=== PATIENT | male | born 1945 | race Asian ===

== ENCOUNTER 2017-05-01 13:14 | Emergency (ER) | payer OTHER ==
[2017-05-01 13:36] VITALS: TEMP 98; BMI 29.4
--- NOTE | 2017-05-01 16:10 | PDOC ---
History of Present Illness <Haydee Miramontes - Last Filed: 05/01/17 17:11> - General History Source: Patient Exam Limitations: No Limitations - History of Present Illness Initial Comments: 05/01/17 16:10 CHIEF COMPLAINT: Dysuria HISTORY OF PRESENT ILLNESS: This is a 71-year-old male with a history of non- insulin-dependent diabetes, hypercholesterolemia, kidney stones, and cholecystectomy who presents complaining of 3 days of suprapubic pain, dysuria, and hematuria. He denies fevers/chills, flank pain, nausea/vomiting, or any other symptoms. PCP is Dr. Federico Buckner. REVIEW OF SYSTEMS: GENERAL/CONSTITUTIONAL: No fever or chills. No weakness. No weight change. HEAD, EYES, EARS, NOSE AND THROAT: No change in vision. No ear pain or discharge. No sore throat. CARDIOVASCULAR: No chest pain or palpitations. RESPIRATORY: No cough, wheezing, or shortness of breath. GASTROINTESTINAL: No nausea, vomiting, diarrhea or constipation. GENITOURINARY: See HPI. MUSCULOSKELETAL: No joint or muscle swelling or pain. No neck or back pain. SKIN: No rash or easy bruising. NEUROLOGIC: No headache, vertigo, loss of consciousness, or loss of sensation. PSYCHIATRIC: No depression or anxiety. ENDOCRINE: No increased thirst. No abnormal weight change. HEMATOLOGIC/LYMPHATIC: No anemia, easy bleeding, or history of blood clots. ALLERGIC/IMMUNOLOGIC: No hives or skin allergy. No latex allergy. PHYSICAL EXAM: GENERAL: The patient is awake, alert, and fully oriented, in no acute distress. HEAD: Normal with no signs of trauma. ENT: Pupils equal, round and reactive to light, extraocular movements intact, sclera anicteric, conjunctiva clear. Neck supple. LUNGS: Clear to auscultation bilaterally. Normal excursion. No respiratory distress or use of accessory muscles. CV: RRR, S1/S2, no MRG. Cap refill < 2 sec. ABDOMEN: Soft, non-distended, mild suprapubic tenderness. No CVA tenderness. EXTREMITIES: Normal range of motion, no edema. NEUROLOGICAL: Normal speech, normal gait. CN II-XII grossly intact. PSYCH: Normal mood, normal affect. SKIN: Warm, dry, normal turgor, no rashes or lesions noted. <Samina Leonardo - Last Filed: 05/01/17 18:17> <Daina Kelly - Last Filed: 05/01/17 20:11> - General Chief Complaint: Hematuria Stated Complaint: BLOOD IN URINE Time Seen by Provider: 05/01/17 15:16 Past History <Haydee Miramontes - Last Filed: 05/01/17 17:11> - Past Medical History Diabetes: Yes Hypercholesterolemia: Yes - Immunization History Immunization Up to Date: Yes - Psycho/Social/Smoking Cessation Hx Suicidal Ideation: No Smoking Status: No Smoking History: Never smoked Have you smoked in the past 12 months: No Number of Cigarettes Smoked Daily: 0 Information on smoking cessation initiated: No Hx Alcohol Use: No Drug/Substance Use Hx: No <Samina Leonardo - Last Filed: 05/01/17 18:17> <Daina Kelly - Last Filed: 05/01/17 20:11> - Past Medical History Allergies/Adverse Reactions: Allergies Allergy/AdvReac Type Severity Reaction Status Date / Time No Known Allergies Allergy Verified 05/01/17 13:32 Home Medications: Ambulatory Orders Aspirin [ASA -] 81 mg PO DAILY 05/01/17 Cetirizine HCl 10 mg PO HS 05/01/17 Glipizide [Glipizide ER] 2.5 mg PO DAILY 05/01/17 Linagliptin [Tradjenta] 5 mg PO DAILY 05/01/17 Metformin HCl [Metformin HCl ER] 1,000 mg PO BID 05/01/17 Omeprazole 40 mg PO DAILY 05/01/17 Simvastatin 40 mg PO HS 05/01/17 *Physical Exam - Vital Signs Last Vital Signs Temp Pulse Resp BP Pulse Ox 98.0 F 90 17 142/72 100 05/01/17 13:32 05/01/17 13:32 05/01/17 13:32 05/01/17 13:32 05/01/17 13:32 <Haydee Miramontes - Last Filed: 05/01/17 17:11> - Vital Signs Last Vital Signs Temp Pulse Resp BP Pulse Ox 98.0 F 90 17 142/72 100 05/01/17 13:32 05/01/17 13:32 05/01/17 13:32 05/01/17 13:32 05/01/17 13:32 <Samina Leonardo - Last Filed: 05/01/17 18:17> - Vital Signs Last Vital Signs Temp Pulse Resp BP Pulse Ox 98.0 F 90 17 142/72 100 05/01/17 13:32 05/01/17 13:32 05/01/17 13:32 05/01/17 13:32 05/01/17 13:32 <Daina Kelly - Last Filed: 05/01/17 20:11> Procedures - Bedside Ultrasound Other: Renal ultrasound : indication hematuria. see [facility] for report <JoneHaydee - Last Filed: 05/01/17 17:11> ED Treatment Course - ADDITIONAL ORDERS Additional order review: Laboratory Results 05/01/17 15:47 Urine Color Ltyellow Urine Appearance Clear Urine pH 5.0 Urine Protein Negative Urine Glucose (UA) 3+ H Urine Ketones Negative Urine Blood Negative Urine Nitrite Negative Urine Bilirubin Negative Urine Urobilinogen Negative Ur Leukocyte Esterase Negative <JoneHaydee - Last Filed: 05/01/17 17:11> - LABORATORY CBC & Chemistry Diagram: 05/01/17 17:09 05/01/17 17:09 <Kori Leonardoa - Last Filed: 05/01/17 18:17> - LABORATORY CBC & Chemistry Diagram: 05/01/17 17:09 05/01/17 17:09 - ADDITIONAL ORDERS Additional order review: Laboratory Results 05/01/17 05/01/17 17:09 15:47 Sodium 139 Potassium 4.8 D Chloride 106 Carbon Dioxide 28 Anion Gap 5 L BUN 22 H Creatinine 1.0 Creat Clearance w eGFR > 60 Random Glucose 160 H D Calcium 9.6 Total Bilirubin 0.6 D AST 25 D ALT 23 Alkaline Phosphatase 52 D Total Protein 7.4 Albumin 3.8 Urine Color Ltyellow Urine Appearance Clear Urine pH 5.0 Ur Specific [place] 1.020 Urine Protein Negative Urine Glucose (UA) 3+ H Urine Ketones Negative Urine Blood Negative Urine Nitrite Negative Urine Bilirubin Negative Urine Urobilinogen Negative Ur Leukocyte Esterase Negative 05/01/17 17:09 RBC 4.42 MCV 93.5 MCHC 33.4 RDW 13.3 MPV 7.3 L Neutrophils % 55.3 D Lymphocytes % 34.0 D Monocytes % 8.7 Eosinophils % 1.3 Basophils % 0.7 <Daina Kelly - Last Filed: 05/01/17 20:11> Medical Decision Making - Medical Decision Making 05/01/17 17:07 focused ED renal and aortic ultrasound performed, indication: hematuria finding: both kidneys scanned in B mode in tranvserse and sagittal planes. no hydronephrosis bilaterally. small simple right renal cyst on superior pole. left kidney with small calcification bladder nondistended impresssion: small right renal cyst, no hydronephrosis. aorta scanned and measured in both transverse and saggital proximal aorta 2.05cm mid aorta <2cm distal aorta <2cm impression: no AAA jone 05/01/17 17:11 <Haydee Miramontes - Last Filed: 05/01/17 17:11> - Medical Decision Making 05/01/17 17:29 A/P: 71 year old male with suprapubic pain, dysuria, and hematuria. 1. UA/culture 2. Bedside bladder and kidney u/s 3. CTAP spiral renal stone protocol 4. Basic labs 5. Declines analgesia 05/01/17 18:17 UA: No RBCs or WBCs H/H 13.8/41.3 <Samina Leonardo - Last Filed: 05/01/17 18:17> - Medical Decision Making 05/01/17 19:59 CT result show- tiny non-obstructing stones w/o hydronephrosis or hydroureter. Dysuria needs further investigation by Urology r/o BPH. Will refer patient to Urology. <Daina Kelly - Last Filed: 05/01/17 20:11> *DC/Admit/Observation/Transfer <Haydee Miramontes - Last Filed: 05/01/17 17:11> <Samina Leonardo - Last Filed: 05/01/17 18:17> - Discharge Dispostion Admit: No <Daina Kelly - Last Filed: 05/01/17 20:11> Diagnosis at time of Disposition: Dysuria - Discharge Dispostion Disposition: HOME Condition at time of disposition: Stable - Referrals Referrals: Federico Buckner MD [Primary Care Provider] - Maximiliano Goff MD [Staff Physician] - - Patient Instructions Printed Discharge Instructions: DI for Benign Prostatic Hyperplasia Additional Instructions: FOLLOW UP WITH YOUR PRIMARY CARE PROVIDER AND DR. GOFF (UROLOGY) REGARDING DIFFICULTY URINATING. YOU SHOULD HAVE YOUR PROSTATE EVALUATED. RETURN IF SYMPTOMS WORSEN OR ANY CONCERNS FOR FURTHER EVALUATION. Print Language: FILIPINO
[2017-05-01 16:12] LABS: URINE APPEARANCE CLEAR; URINE BILIRUBIN NEGATIVE (NEGATIVE); URINE BLOOD NEGATIVE (NEGATIVE); URINE COLOR LTYELLOW; URINE GLUCOSE (UA) 3+ (NEGATIVE); URINE KETONE NEGATIVE (NEGATIVE); URINE LEUK ESTERASE NEGATIVE (NEGATIVE); URINE NITRITE NEGATIVE (NEGATIVE); URINE PROTEIN NEGATIVE (NEGATIVE); URINE UROBILINOGEN NEGATIVE mg/dL (0.2-1.0)
[2017-05-01 17:29] LABS: BASOPHIL 0.7 % (0-2.0); EOSINOPHIL 1.3 % (0-4.5); MCH 31.2 pg (25.7-33.7); MCHC 33.4 g/dl (32.0-35.9); MEAN CELL VOLUME 93.5 fl (80-96); MEAN PLT VOLUME 7.3 fl (7.5-11.1); NEUTROPHILS 55.3 % (42.8-82.8); PLATELET COUNT 206 K/MM3 (134-434); RDW 13.3 % (11.9-15.9); WHITE BLOOD COUNT 7.3 K/mm3 (4.0-10.0)
[2017-05-01 17:51] LABS: ALBUMIN 3.8 g/dl (3.4-5.0); ANION GAP 5 (8-16); BILIRUBIN,TOTAL 0.6 mg/dL (0.2-1.0); CALCIUM 9.6 mg/dL (8.5-10.1); CO2 28 mmol/L (21-32); GLUCOSE,RANDOM 160 mg/dL (74-106); SGPT/ALT 23 U/L (12-78); TOT PROT 7.4 g/dl (6.4-8.2)
[2017-05-01 17:52] LABS: ALK PHOS 52 U/L (45-117)
[2017-05-01 18:07] LABS: SGOT/AST 25 U/L (15-37)
[2017-05-01 20:36] VITALS: BP 140/69; PULSE 76
== END 2017-05-01 20:25 | disposition home or self-care (01) ==
LOC: JER 13:14
DX: N20.0 Calculus of kidney (principal); E11.9 Type 2 diabetes mellitus without complications; Z79.84 Long term (current) use of oral hypoglycemic drugs; E78.00 Pure hypercholesterolemia, unspecified
CPT/HCPCS: 36415; 74176; 80053; 81003; 85025; 87086; 99283-25

== ENCOUNTER 2017-08-28 14:09 | Emergency (ER) | payer OTHER ==
[2017-08-28 14:21] VITALS: TEMP 98.1; BMI 28.8
--- NOTE | 2017-08-28 15:12 | PDOC ---
History of Present Illness - General History Source: Patient, Family (Son) Exam Limitations: No Limitations - History of Present Illness Initial Comments: 08/28/17 16:01 The patient is a 71 year old male with a significant PMH of non insulin dependent diabetes, hyperlipidemia, kidney stones, and cholecystectomy who complains of intermittent left chest pain that began 4AM this morning and woke him up prompting his visit to the ED today. The patient reports that the chest pain is not radiating to the left shoulder or arm but notes slight back pain. The patient states that the pain is not sharp or pressure-like and nothing makes the chest pain better or worse. The patient has no previous cardiac history. The patient notes that he had a similar chest pain 1t5 years ago but the pain was resolved after he was given medication. The patient notes itchy rashes on his arm and legs and occasional dizziness when walking. The patient denies shortness of breath, diaphoresis, and headache. Denies fever, chills, nausea, vomit, diarrhea and constipation. Allergies: NKA Past surgical history: None reported. Social history: No reported alcohol, drug or cigarette use. PCP: Dr. Buckner <Ling Wyatt - Last Filed: 08/28/17 16:01> <Ruthie Beth - Last Filed: 08/31/17 10:42> - General Chief Complaint: Chest Pain Stated Complaint: CHEST PAIN Past History <Ling Wyatt - Last Filed: 08/28/17 16:01> - Past Medical History COPD: No Diabetes: Yes Hypercholesterolemia: Yes Kidney Stones: Yes - Immunization History Immunization Up to Date: Yes - Suicide/Smoking/Psychosocial Hx Smoking Status: No Smoking History: Never smoked Have you smoked in the past 12 months: No Number of Cigarettes Smoked Daily: 0 Information on smoking cessation initiated: No Hx Alcohol Use: No Drug/Substance Use Hx: No Substance Use Type: None <Ruthie Beth - Last Filed: 08/31/17 10:42> - Past Medical History Allergies/Adverse Reactions: Allergies Allergy/AdvReac Type Severity Reaction Status Date / Time No Known Allergies Allergy Verified 08/28/17 14:21 Home Medications: Ambulatory Orders Glipizide [Glipizide ER] 2.5 mg PO DAILY 05/01/17 Linagliptin [Tradjenta] 5 mg PO DAILY 05/01/17 Metformin HCl [Metformin HCl ER] 1,000 mg PO BID 05/01/17 Ibuprofen [Motrin -] 400 mg PO TID #21 tablet 08/25/17 Allopurinol [Zyloprim -] 0 mg PO DAILY 08/28/17 Aspirin [ASA -] 81 mg PO DAILY 08/28/17 Cholecalciferol (Vitamin D3) [Vitamin D3 -] 0 unit PO WEEKLY 08/28/17 Colchicine 0 mg PO DAILY 08/28/17 Gabapentin 0 mg PO DAILY 08/28/17 Review of Systems - Review of Systems Able to Perform ROS?: Yes Comments:: 08/28/17 16:03 GENERAL/CONSTITUTIONAL: No fever or chills. No weakness. HEAD, EYES, EARS, NOSE AND THROAT: No change in vision. No ear pain or discharge. No sore throat. CARDIOVASCULAR: (+) Left chest pain. No shortness of breath. RESPIRATORY: No cough, wheezing, or hemoptysis. GASTROINTESTINAL: No nausea, vomiting, diarrhea or constipation. GENITOURINARY: No dysuria, frequency, or change in urination. MUSCULOSKELETAL: No joint or muscle swelling or pain. No neck pain. SKIN: No rash NEUROLOGIC: No headache, vertigo, loss of consciousness, or change in strength/ sensation. ENDOCRINE: No increased thirst. No abnormal weight change. HEMATOLOGIC/LYMPHATIC: No anemia, easy bleeding, or history of blood clots. ALLERGIC/IMMUNOLOGIC: No hives or skin allergy. <Ling Wyatt - Last Filed: 08/28/17 16:01> *Physical Exam - Vital Signs Last Vital Signs Temp Pulse Resp BP Pulse Ox 98.1 F 80 19 139/69 97 08/28/17 14:19 08/28/17 14:19 08/28/17 14:19 08/28/17 14:19 08/28/17 14:19 - Physical Exam Comments: 08/28/17 16:02 GENERAL: Awake, alert, and fully oriented, in no acute distress HEAD: No signs of trauma EYES: PERRLA, EOMI, sclera anicteric, conjunctiva clear ENT: Auricles normal inspection, hearing grossly normal, nares patent, oropharynx clear without exudates. Moist mucosa NECK: Normal ROM, supple, no lymphadenopathy, JVD, or masses LUNGS: Breath sounds equal, clear to auscultation bilaterally. No wheezes, and no crackles HEART: Regular rate and rhythm, normal S1 and S2, no murmurs, rubs or gallops ABDOMEN: Soft, nontender, normoactive bowel sounds. No guarding, no rebound. No masses EXTREMITIES: Normal range of motion, no edema. No clubbing or cyanosis. No cords, erythema, or tenderness NEUROLOGICAL: Cranial nerves II through XII grossly intact. Normal speech, normal gait SKIN: Warm, Dry, normal turgor, or lesions noted. <Ling Wyatt - Last Filed: 08/28/17 16:01> - Vital Signs Last Vital Signs Temp Pulse Resp BP Pulse Ox 98.1 F 80 19 139/69 97 08/28/17 14:19 08/28/17 14:19 08/28/17 14:19 08/28/17 14:19 08/28/17 14:19 <Ruthie Beth - Last Filed: 08/31/17 10:42> ED Treatment Course - LABORATORY CBC & Chemistry Diagram: 08/28/17 15:41 08/28/17 17:32 <Ruthie Beth - Last Filed: 08/31/17 10:42> Medical Decision Making - Medical Decision Making 08/31/17 10:40 Pt presents to the Ed complaining of chest pain that has now resolved. Multiple risk factors for cardiac disease. EKG shows no evidence of ischemia. took asprin at home. Will check labs, admit to observation for ACS rule out, <Ruthie Beth - Last Filed: 08/31/17 10:42> *DC/Admit/Observation/Transfer - Attestations Scribe Attestion: 08/28/17 16:03 Documentation prepared by Ling Wyatt, acting as bilingual medical receptionist for Ruthie Beth MD. <Ling Wyatt - Last Filed: 08/28/17 16:01> <Ruthie Beth - Last Filed: 08/31/17 10:42> Diagnosis at time of Disposition: Chest pain Qualifiers: Chest pain type: unspecified Qualified Code(s): R07.9 - Chest pain, unspecified Diabetes Qualifiers: Diabetes mellitus type: type 1 Diabetes mellitus complication status: without complication Qualified Code(s): E10.9 - Type 1 diabetes mellitus without complications - Discharge Dispostion Disposition: AGAINST MEDICAL ADVICE - Referrals Referrals: Federico Buckner MD [Primary Care Provider] - - Patient Instructions Printed Discharge Instructions: DI for Chest Pain - Post Discharge Activity
[2017-08-28 16:24] LABS: MCH 32.4 pg (25.7-33.7); MCHC 34.4 g/dl (32.0-35.9); MEAN CELL VOLUME 94.2 fl (80-96); MEAN PLT VOLUME 8.8 fl (7.5-11.1); PLATELET COUNT 230 K/MM3 (134-434); RDW 12.8 % (11.9-15.9); WHITE BLOOD COUNT 8.7 K/mm3 (4.0-10.0)
[2017-08-28 17:41] LABS: TOTAL CELLS COUNTED 100
[2017-08-28 17:42] LABS: PLATELET ESTIMATE ADEQUATE; REACTIVE LYMPHOCYTES 15 % (0-80)
--- NOTE | 2017-08-28 18:04 | HP ---
CHIEF COMPLAINT: PCP: HISTORY OF PRESENT ILLNESS: ER course was notable for: (1) (2) (3) Recent Travel: PAST MEDICAL HISTORY: PAST SURGICAL HISTORY: Social History: Smoking: Alcohol: Drugs: Family History: Allergies No Known Allergies Allergy (Verified 08/28/17 14:21) HOME MEDICATIONS: Home Medications Medication Instructions Recorded Glipizide [Glipizide ER] 2.5 mg PO DAILY 05/01/17 Linagliptin [Tradjenta] 5 mg PO DAILY 05/01/17 Metformin HCl [Metformin HCl ER] 1,000 mg PO BID 05/01/17 Ibuprofen [Motrin -] 400 mg PO TID #21 tablet 08/25/17 Allopurinol [Zyloprim -] 0 mg PO DAILY 08/28/17 Aspirin [ASA -] 81 mg PO DAILY 08/28/17 Cholecalciferol (Vitamin D3) 0 unit PO WEEKLY 08/28/17 [Vitamin D3 -] Colchicine 0 mg PO DAILY 08/28/17 Gabapentin 0 mg PO DAILY 08/28/17 REVIEW OF SYSTEMS CONSTITUTIONAL: Absent: fever, chills, diaphoresis, generalized weakness, malaise, loss of appetite, weight change HEENT: Absent: rhinorrhea, nasal congestion, throat pain, throat swelling, difficulty swallowing, mouth swelling, ear pain, eye pain, visual changes CARDIOVASCULAR: Absent: chest pain, syncope, palpitations, irregular heart rate, lightheadedness , peripheral edema RESPIRATORY: Absent: cough, shortness of breath, dyspnea with exertion, orthopnea, wheezing, stridor, hemoptysis GASTROINTESTINAL: Absent: abdominal pain, abdominal distension, nausea, vomiting, diarrhea, constipation, melena, hematochezia GENITOURINARY: Absent: dysuria, frequency, urgency, hesitancy, hematuria, flank pain, genital pain MUSCULOSKELETAL: Absent: myalgia, arthralgia, joint swelling, back pain, neck pain SKIN: Absent: rash, itching, pallor HEMATOLOGIC/IMMUNOLOGIC: Absent: easy bleeding, easy bruising, lymphadenopathy, frequent infections ENDOCRINE: Absent: unexplained weight gain, unexplained weight loss, heat intolerance, cold intolerance NEUROLOGIC: Absent: headache, focal weakness or paresthesias, dizziness, unsteady gait, seizure, mental status changes, bladder or bowel incontinence PSYCHIATRIC: Absent: anxiety, depression, suicidal or homicidal ideation, hallucinations. PHYSICAL EXAMINATION Vital Signs - 24 hr 08/28/17 14:19 Temperature 98.1 F Pulse Rate 80 Respiratory 19 Rate Blood Pressure 139/69 O2 Sat by Pulse 97 Oximetry (%) GENERAL: Awake, alert, and fully oriented, in no acute distress. HEAD: Normal with no signs of trauma. EYES: Pupils equal, round and reactive to light, extraocular movements intact, sclera anicteric, conjunctiva clear. No lid lag. EARS, NOSE, THROAT: Ears normal, nares patent, oropharynx clear without exudates. Moist mucous membranes. NECK: Normal range of motion, supple without lymphadenopathy, JVD, or masses. LUNGS: Breath sounds equal, clear to auscultation bilaterally. No wheezes, and no crackles. No accessory muscle use. HEART: Regular rate and rhythm, normal S1 and S2 without murmur, rub or gallop. ABDOMEN: Soft, nontender, not distended, normoactive bowel sounds, no guarding, no rebound, no masses. No hepatomegaly or splenomegaly. MUSCULOSKELETAL: Normal range of motion at all joints. No bony deformities or tenderness. No CVA tenderness. UPPER EXTREMITIES: 2+ pulses, warm, well-perfused. No cyanosis. No clubbing. No peripheral edema. LOWER EXTREMITIES: 2+ pulses, warm, well-perfused. No calf tenderness. No peripheral edema. NEUROLOGICAL: Cranial nerves II-XII intact. Normal speech. Normal gait. PSYCHIATRIC: Cooperative. Good eye contact. Appropriate mood and affect. SKIN: Warm, dry, normal turgor, no rashes or lesions noted, normal capillary refill. Laboratory Results - last 24 hr 08/28/17 08/28/17 15:41 15:41 WBC 8.7 RBC 4.49 Hgb 14.6 Hct 42.3 MCV 94.2 MCH 32.4 MCHC 34.4 RDW 12.8 Plt Count 230 MPV 8.8 D Total Counted 100 Neutrophils % No Result Required. Neutrophils % (Manual) 49.0 Lymphocytes % No Result Required. Lymphocytes % (Manual) 25.0 Monocytes % (Manual) 9 Eosinophils % (Manual) 2.0 Differential Comment Platelet Estimate Adequate Platelet Comment Sodium Cancelled Potassium Cancelled Chloride Cancelled Carbon Dioxide Cancelled Anion Gap Cancelled BUN Cancelled Creatinine Cancelled Creat Clearance w eGFR Cancelled Random Glucose Cancelled Calcium Cancelled Total Bilirubin Cancelled AST Cancelled ALT Cancelled Alkaline Phosphatase Cancelled Creatine Kinase Cancelled Troponin I Cancelled Total Protein Cancelled Albumin Cancelled ASSESSMENT/PLAN:
[2017-08-28 18:12] LABS: ALBUMIN 3.4 g/dl (3.4-5.0); ANION GAP 7 (8-16); BILIRUBIN,TOTAL 0.4 mg/dL (0.2-1.0); CALCIUM 8.3 mg/dL (8.5-10.1); CO2 28 mmol/L (21-32); CREATININE 1.2 mg/dL (0.7-1.3); GLUCOSE,RANDOM 244 mg/dL (74-106); SGOT/AST 18 U/L (15-37); SGPT/ALT 30 U/L (12-78)
[2017-08-28 18:15] LABS: ALK PHOS 51 U/L (45-117); CPK 75 IU/L (39-308); TROPONIN I < 0.02 ng/ml (0.00-0.05)
[2017-08-28 19:01] VITALS: BP 141/55
--- NOTE | 2017-08-28 19:08 | PDOC ---
*Physical Exam - Vital Signs Last Vital Signs Temp Pulse Resp BP Pulse Ox 98.1 F 88 16 141/55 99 08/28/17 14:19 08/28/17 19:00 08/28/17 19:00 08/28/17 19:00 08/28/17 19:00 ED Treatment Course - LABORATORY CBC & Chemistry Diagram: 08/28/17 15:41 08/28/17 17:32 - ADDITIONAL ORDERS Additional order review: Laboratory Results 08/28/17 08/28/17 17:32 15:41 Sodium 138 Cancelled Potassium 4.3 Cancelled Chloride 103 Cancelled Carbon Dioxide 28 Cancelled Anion Gap 7 L Cancelled BUN 18 Cancelled Creatinine 1.2 Cancelled Creat Clearance w eGFR > 60 Cancelled Random Glucose 244 H D Cancelled Calcium 8.3 L Cancelled Total Bilirubin 0.4 D Cancelled AST 18 D Cancelled ALT 30 D Cancelled Alkaline Phosphatase 51 Cancelled Creatine Kinase 75 Cancelled Troponin I < 0.02 Cancelled Total Protein 7.0 Cancelled Albumin 3.4 Cancelled 08/28/17 15:41 RBC 4.49 MCV 94.2 MCHC 34.4 RDW 12.8 MPV 8.8 D Neutrophils % No Result Required. Lymphocytes % No Result Required. *DC/Admit/Observation/Transfer Diagnosis at time of Disposition: Chest pain Qualifiers: Chest pain type: unspecified Qualified Code(s): R07.9 - Chest pain, unspecified Diabetes Qualifiers: Diabetes mellitus type: type 1 Diabetes mellitus complication status: without complication Qualified Code(s): E10.9 - Type 1 diabetes mellitus without complications - Discharge Dispostion Disposition: AGAINST MEDICAL ADVICE Admit: No - Referrals Referrals: Federico Buckner MD [Primary Care Provider] - - Patient Instructions Printed Discharge Instructions: DI for Chest Pain - Post Discharge Activity
[2017-08-28 19:34] VITALS: PULSE 85
--- NOTE | 2017-08-28 20:46 | DS ---
Physical Exam: SUBJECTIVE: Patient seen and examined OBJECTIVE: Vital Signs Period Temp Pulse Resp BP Sys/Pradhan Pulse Ox Last 24 Hr 98.1 F 80-88 16-19 139-141/55-69 96-99 PHYSICAL EXAM GENERAL: The patient is awake, alert, and fully oriented, in no acute distress. HEAD: Normal with no signs of trauma. EYES: PERRL, extraocular movements intact, sclera anicteric, conjunctiva clear. ENT: Ears normal, nares patent, oropharynx clear without exudates, moist mucous membranes. NECK: Trachea midline, full range of motion, supple. LUNGS: Breath sounds equal, clear to auscultation bilaterally, no wheezes, no crackles, no accessory muscle use. HEART: Regular rate and rhythm, S1, S2 without murmur, rub or gallop. ABDOMEN: Soft, nontender, nondistended, normoactive bowel sounds, no guarding, no rebound, no hepatosplenomegaly, no masses. EXTREMITIES: 2+ pulses, warm, well-perfused, no edema. NEUROLOGICAL: Cranial nerves II through XII grossly intact. Normal speech, gait not observed. PSYCH: Normal mood, normal affect. SKIN: Warm, dry, normal turgor, no rashes or lesions noted. LABS Laboratory Results - last 24 hr 08/28/17 08/28/17 08/28/17 15:41 15:41 17:32 WBC 8.7 RBC 4.49 Hgb 14.6 Hct 42.3 MCV 94.2 MCH 32.4 MCHC 34.4 RDW 12.8 Plt Count 230 MPV 8.8 D Total Counted 100 Neutrophils % No Result Required. Neutrophils % (Manual) 49.0 Lymphocytes % No Result Required. Lymphocytes % (Manual) 25.0 Monocytes % (Manual) 9 Eosinophils % (Manual) 2.0 Differential Comment Platelet Estimate Adequate Platelet Comment Sodium Cancelled 138 Potassium Cancelled 4.3 Chloride Cancelled 103 Carbon Dioxide Cancelled 28 Anion Gap Cancelled 7 L BUN Cancelled 18 Creatinine Cancelled 1.2 Creat Clearance w eGFR Cancelled > 60 Random Glucose Cancelled 244 H D Calcium Cancelled 8.3 L Total Bilirubin Cancelled 0.4 D AST Cancelled 18 D ALT Cancelled 30 D Alkaline Phosphatase Cancelled 51 Creatine Kinase Cancelled 75 Troponin I Cancelled < 0.02 Total Protein Cancelled 7.0 Albumin Cancelled 3.4 HOSPITAL COURSE: Date of Admission:08/28/17 Date of AMA: 08/28/17 Went to the ED to see and examine the patient. Advised by staff he earlier signed out AMA. Minutes to complete discharge: 5 Discharge Summary Reason For Visit: CHEST PAIN - Instructions Referrals: Federico Buckner MD [Primary Care Provider] - Disposition: AGAINST MEDICAL ADVICE - Home Medications Comprehensive Discharge Medication List: Ambulatory Orders Glipizide [Glipizide ER] 2.5 mg PO DAILY 05/01/17 Linagliptin [Tradjenta] 5 mg PO DAILY 05/01/17 Metformin HCl [Metformin HCl ER] 1,000 mg PO BID 05/01/17 Ibuprofen [Motrin -] 400 mg PO TID #21 tablet 08/25/17 Allopurinol [Zyloprim -] 0 mg PO DAILY 08/28/17 Aspirin [ASA -] 81 mg PO DAILY 08/28/17 Cholecalciferol (Vitamin D3) [Vitamin D3 -] 0 unit PO WEEKLY 08/28/17 Colchicine 0 mg PO DAILY 08/28/17 Gabapentin 0 mg PO DAILY 08/28/17 This patient is new to me today: Yes Date on this admission: 08/28/17 Emergency Visit: Yes Care time: The patient presented to the Emergency Department on the above date and was hospitalized for further evaluation of their emergent condition. Critical Care patient: No - Discharge Referral Referred to [facility] No
[2017-08-29] MEDS ORDERED: HEPARIN NA (PORCINE) 5,000 UNITS/ML 1ML VIAL SQ SCH (06:00)
[2017-08-29] MEDS ORDERED: GABAPENTIN 100 MG CAPSULE (FP) PO SCH (10:00)
[2017-08-29] MEDS ORDERED: ALLOPURINOL 100 MG TABLET (FP) PO SCH (10:00)
[2017-08-29] MEDS ORDERED: ASPIRIN 81 MG CHEWABLE TABLETS PO SCH (10:00)
--- NOTE | 2017-08-29 10:27 | EKG ---
Test Reason : Blood Pressure : / mmHG Vent. Rate : 079 BPM Atrial Rate : 079 BPM P-R Int : 190 ms QRS Dur : 080 ms QT Int : 394 ms P-R-T Axes : 060 029 037 degrees QTc Int : 451 ms NORMAL SINUS RHYTHM NORMAL ECG WHEN COMPARED WITH ECG OF 18-JUL-2013 23:31, NO SIGNIFICANT CHANGE WAS FOUND Confirmed by HAL KRUSE MD ([id number]) on 08/29/2017 10:27:29 AM Referred By: Confirmed By:HAL KRUSE MD
== END 2017-08-28 19:34 | disposition left against medical advice (07) ==
LOC: JER 14:09
DX: R07.9 Chest pain, unspecified (principal); E10.9 Type 1 diabetes mellitus without complications; Z79.4 Long term (current) use of insulin; E78.5 Hyperlipidemia, unspecified; Z87.442 Personal history of urinary calculi; Z90.49 Acquired absence of other specified parts of digestive tract
CPT/HCPCS: 36415; 71010-TC; 80053; 82550; 84484; 85025; 93005; 93010; 99283-25

== ENCOUNTER 2020-05-20 15:29 | Emergency (ER) | payer OTHER ==
[2020-05-20 15:46] VITALS: TEMP 98.1; BMI 28.3
--- NOTE | 2020-05-20 15:58 | PDOC ---
History of Present Illness - General Chief Complaint: Back Pain Stated Complaint: BACK AND NECK PAIN Time Seen by Provider: 05/20/20 15:57 History Source: Patient - History of Present Illness Initial Comments: 05/20/20 17:00 74M w/hx DM p/w two days of back, neck pain. He reports noting the pain two days ago when he woke up. He denies any trauma, weakness, confusion, chest pain, difficulty breathing, nausea, vomiting. He reports 10/10 pain radiating from the back of his neck to his lumbar spine. He denies any headache, vision changes, or urinary incontinence. At home he has taken motrin, acetaminophen without improvement of pain. Past History - Medical History Allergies/Adverse Reactions: Allergies Allergy/AdvReac Type Severity Reaction Status Date / Time No Known Allergies Allergy Verified 08/28/17 14:21 Home Medications: Ambulatory Orders Glipizide [Glipizide ER] 2.5 mg PO DAILY 05/01/17 Linagliptin [Tradjenta] 5 mg PO DAILY 05/01/17 metFORMIN HCL [Metformin HCl ER] 1,000 mg PO BID 05/01/17 Ibuprofen [Motrin -] 400 mg PO TID #21 tablet 08/25/17 Allopurinol [Zyloprim -] 0 mg PO DAILY 08/28/17 Aspirin [ASA -] 81 mg PO DAILY 08/28/17 Cholecalciferol (Vitamin D3) [Vitamin D3 -] 0 unit PO WEEKLY 08/28/17 Colchicine 0 mg PO DAILY 08/28/17 Gabapentin 0 mg PO DAILY 08/28/17 COPD: No Diabetes: Yes GI Disorders: Yes (GERD) Hypercholesterolemia: Yes Kidney Stones: Yes - Immunization History Immunization Up to Date: Yes - Psycho-Social/Smoking History Smoking Status: No Smoking History: Never smoked Have you smoked in the past 12 months: No Number of Cigarettes Smoked Daily: 0 - Substance Abuse Hx (Audit-C & DAST Scrn) How often the patient has a drink containing alcohol: Never Score: In Men: 4 or > Positive; In Women: 3 or > Positive: 0 Screen Result (Pos requires Nsg. Audit-10AR): Negative In the last yr the pt used illegal drug/Rx for NonMed reason: No Score: Yes response is considered Positive: 0 Screen Result (Positive result requires Nsg. DAST-10): Negative Review of Systems - Review of Systems Able to Perform ROS?: Yes Comments:: 05/20/20 17:09 GENERAL/CONSTITUTIONAL: No fever or chills. No weakness. HEAD, EYES, EARS, NOSE AND THROAT: No change in vision. No ear pain or discharge. No sore throat. CARDIOVASCULAR: No chest pain or shortness of breath RESPIRATORY: No cough, wheezing, or hemoptysis. GASTROINTESTINAL: No nausea, vomiting, diarrhea or constipation. GENITOURINARY: No dysuria, frequency, or change in urination. MUSCULOSKELETAL: Neck, back pain. No other joint or muscle swelling or pain. SKIN: No rash NEUROLOGIC: No headache, vertigo, loss of consciousness, or change in strength/sensation. ENDOCRINE: No increased thirst. No abnormal weight change HEMATOLOGIC/LYMPHATIC: No anemia, easy bleeding, or history of blood clots. ALLERGIC/IMMUNOLOGIC: No hives or skin allergy. *Physical Exam - Vital Signs Last Vital Signs Temp Pulse Resp BP Pulse Ox 98.1 F 91 H 20 132/60 98 05/20/20 15:41 05/20/20 15:41 05/20/20 15:41 05/20/20 15:41 05/20/20 15:41 - Physical Exam 05/20/20 17:09 GENERAL: Awake, alert, and fully oriented, in no acute distress HEAD: No signs of trauma, normocephalic, atraumatic EYES: PERRLA, EOMI, sclera anicteric, conjunctiva clear ENT: Auricles normal inspection, hearing grossly normal, nares patent, oropharynx clear without exudates. Moist mucosa NECK: Normal ROM, supple, no lymphadenopathy, JVD, or masses LUNGS: No distress, speaks full sentences, clear to auscultation bilaterally HEART: Regular rate and rhythm, normal S1 and S2, no murmurs, rubs or gallops, peripheral pulses normal and equal bilaterally. ABDOMEN: Soft, nontender, normoactive bowel sounds. No guarding, no rebound. No masses BACK: Paraspinal tenderness in L Lumbar, thoracic, cervical spines. No overlying rash or tenderness to soft touch. EXTREMITIES : Normal inspection, Normal range of motion, no edema. No clubbing or cyanosis NEUROLOGICAL: Cranial nerves II through XII grossly intact. Normal speech, normal gait, no focal sensorimotor deficits SKIN: Warm, Dry, normal turgor, no rashes or lesions noted Medical Decision Making - Medical Decision Making 05/20/20 17:11 74M w/hx DM p/w two days of 07/11 paraspinal neck, back pain. No red flag signs on exam. Plan: Pain control CBC CMP Troponin I EKG CXR Dispo: Discharge pending reevaluation
[2020-05-20] MEDS ORDERED: LIDOCAINE 5% TOPICAL PATCH TP ONE (17:09)
[2020-05-20] MEDS ORDERED: ACETAMINOPHEN 325 MG TABLET (FP) PO ONE (17:09)
[2020-05-20] MEDS ORDERED: ACETAMINOPHEN 325 MG TABLET (FP) ONE (17:34)
[2020-05-20] MEDS ORDERED: LIDOCAINE 5% TOPICAL PATCH ONE (17:35)
[2020-05-20 17:57] LABS: BASO % 0.6 % (0-2.0); EOS % 1.6 % (0-4.5); HEMATOCRIT 40.2 % (35.4-49); HEMOGLOBIN 13.3 GM/dL (11.7-16.9); LYMPH % 25.4 % (8-40); MCH 31.9 pg (25.7-33.7); MCHC 33.2 g/dl (32.0-35.9); MEAN CELL VOLUME 96.2 fl (80-96); MEAN PLT VOLUME 7.7 fl (7.5-11.1); MONO % 9.9 % (3.8-10.2); NEUT % 62.5 % (42.8-82.8); PLATELET COUNT 243 K/MM3 (134-434); RBC 4.18 M/mm3 (4.00-5.60); RDW 12.6 % (11.9-15.9); WHITE BLOOD COUNT 7.7 K/mm3 (4.0-10.0)
[2020-05-20 18:26] LABS: ALBUMIN 3.3 g/dl (3.4-5.0); ALK PHOS 78 U/L (45-117); ANION GAP 7 MMOL/L (8-16); BILIRUBIN,TOTAL 0.5 mg/dL (0.2-1); BLOOD UREA NITROGEN 21.6 mg/dL (7-18); CALCIUM 9.1 mg/dL (8.5-10.1); CHLORIDE 104 mmol/L (98-107); CO2 26 mmol/L (21-32); CREATININE 1.1 mg/dL (0.55-1.3); GLUCOSE,RANDOM 288 mg/dL (74-106); POTASSIUM 4.7 mmol/L (3.5-5.1); SGOT/AST 16 U/L (15-37); SGPT/ALT 18 U/L (13-61); SODIUM 138 mmol/L (136-145); TOT PROT 7.1 g/dl (6.4-8.2)
[2020-05-20 18:47] VITALS: BP 140/68; PULSE 76
--- NOTE | 2020-05-20 19:39 | PDOC ---
*Physical Exam - Vital Signs Last Vital Signs Temp Pulse Resp BP Pulse Ox 98.1 F 76 20 140/68 95 05/20/20 15:41 05/20/20 18:46 05/20/20 18:46 05/20/20 18:46 05/20/20 18:46 ED Treatment Course - LABORATORY CBC & Chemistry Diagram: 05/20/20 17:13 05/20/20 17:13 - ADDITIONAL ORDERS Additional order review: Laboratory Results 05/20/20 17:13 Sodium 138 Potassium 4.7 Chloride 104 Carbon Dioxide 26 Anion Gap 7 L BUN 21.6 H Creatinine 1.1 Est GFR (CKD-EPI)AfAm 77.32 Est GFR (CKD-EPI)NonAf 66.71 Random Glucose 288 H Calcium 9.1 Total Bilirubin 0.5 AST 16 ALT 18 Alkaline Phosphatase 78 Troponin I < 0.02 Total Protein 7.1 Albumin 3.3 L 05/20/20 17:13 RBC 4.18 MCV 96.2 H MCHC 33.2 RDW 12.6 MPV 7.7 D Neutrophils % 62.5 Lymphocytes % 25.4 D Monocytes % 9.9 Eosinophils % 1.6 Basophils % 0.6 - Medications Given in the ED: ED Medications Discontinued Medications Generic Name Dose Route Start Last Admin Trade Name Tomasz PRN Reason Stop Dose Admin Acetaminophen 650 mg 05/20/20 17:09 05/20/20 17:41 Tylenol - PO 05/20/20 17:10 650 mg ONCE ONE Administration Lidocaine 1 patch 05/20/20 17:09 05/20/20 17:41 Lidoderm Patch - TP 05/20/20 17:10 1 patch ONCE ONE Administration Discharge - Discharge Information Problems reviewed: Yes Clinical Impression/Diagnosis: Musculoligamentous strain Condition: Good Disposition: AGAINST MEDICAL ADVICE - Follow up/Referral Referrals: Shade Guzman MD [Primary Care Provider] - - Patient Discharge Instructions Patient Printed Discharge Instructions: DI for Neck Pain Additional Instructions: It is recommended that you be stay for the second troponin test in the hospital. The risks of leaving the hospital without complete evaluation for bloodwork include , cardiac arrest, heart attack, stroke and repeated loss of consciousness. These risks have been discussed with your for > 20min. You express understanding of these risks and still desire to leave the hospital against medical advice. Discharge instruction You were seen in the ED for complaints of back pain. In the ED you were evaluated with blood work Your results were negative There does not appear to be an acute need for immediate hospitalization. You are advised to follow up with your Primary Care Physician within 1 week. You were given a prescription for lidocaine patch. Please use over the counter tylenol and motrin. Please alternate between these pain killers, and lidocaine patch. Read the instruction on the label well. Return to the ED immediately if you experience worsening pain, dizziness, nausea, vomiting. - Post Discharge Activity
--- NOTE | 2020-05-20 19:41 | PDOC ---
Documentation entered by Stefani Villafuerte SCRIBE, acting as scribe for Haydee Miramontes MD. Haydee Miramontes MD: This documentation has been prepared by the Christo aguilera Ana, SCRIBE, under my direction and personally reviewed by me in its entirety. I confirm that the documentation accurately reflects all work, treatment, procedures, and medical decision making performed by me. Attending Attestation - Resident Resident Name: ManasDavid - ED Attending Attestation I have performed the following: I have examined & evaluated the patient, The case was reviewed & discussed with the resident, I agree w/resident's findings & plan, Exceptions are as noted - HPI HPI: 05/20/20 16:19 Patient is a 74 year old male with a significant past medical history of diabetes, hypercholesterolemia, kidney stones, and cholecystectomy, who presents to the ED with neck pain and back pain x2 days. Patient stated he just woke up with the pain 2 days ago. Patient said he has a pain level of 10/10 and that the pain radiates from the back of his neck to his spine. Patient disclosed he attempted to self medicate at home but experienced no improvement. Patient denies: trauma, weakness, confusion, headache, vision changes, nausea, vomiting, difficulty breathing, chest pain, any urinary issues, or any other related symptoms. Allergies: NKDA - Physicial Exam PE: 05/20/20 19:37 awake alert lungs clear bilat heart rrr no mrg abd soft nt nd ext wwp. no edema. no calf tenderness. mild trapezial spasm and pain left lateral trapezius. strength intact. speech clear. nuero intact. - Medical Decision Making 05/20/20 19:38 74 yo h/o htn dm here with c/o left laterl neck and back pain. differential trapezial spasm/ strain, msk pain, atypical angina. plan labs xray ekg trop. was given lidocain topica. pt feels improved. would like to go home. states he is supposed to have further cardiac testing in one week under dr silverman, and saw heart doctor recently. leaving AMA first trop negative. told to return for weakness, chest pain or any other concerns. Discharge - Discharge Information Problems reviewed: Yes Clinical Impression/Diagnosis: Neck pain Disposition: AGAINST MEDICAL ADVICE - Admission No - Follow up/Referral Referrals: Shade Guzman MD [Primary Care Provider] - - Patient Discharge Instructions Patient Printed Discharge Instructions: Neck Pain (Alternative Therapy), DI for Muscle Spasm Additional Instructions: understand you are leaving against medical advice. you should take tylenol 500 mg every 6 hours as needed for pain. follow up with dr silverman as scheduled for further heart testing. return for any chest pain, shortness of breath or any concerns. - Post Discharge Activity
[2020-05-20] MEDS ORDERED: LIDOCAINE PATCH REMOVAL MC SCH (22:00)
--- NOTE | 2020-05-21 16:56 | EKG ---
Test Reason : Blood Pressure : / mmHG Vent. Rate : 084 BPM Atrial Rate : 084 BPM P-R Int : 178 ms QRS Dur : 084 ms QT Int : 396 ms P-R-T Axes : 052 032 040 degrees QTc Int : 467 ms NORMAL SINUS RHYTHM NONSPECIFIC T WAVE ABNORMALITY PROLONGED QT ABNORMAL ECG WHEN COMPARED WITH ECG OF 28-AUG-2017 14:14, NONSPECIFIC T WAVE ABNORMALITY NOW EVIDENT IN LATERAL LEADS Confirmed by TESSA SWIFT, ROLA ([id number]) on 05/21/2020 4:55:53 PM Referred By: Confirmed By:ROLA ZARATE MD
== END 2020-05-20 19:52 | disposition left against medical advice (07) ==
LOC: JER 15:29 → SUPCPDRO 15:29 → JER 19:52
DX: M54.2 Cervicalgia (principal)
CPT/HCPCS: 36415; 71046-TC-FY; 80053; 84484; 85025; 93005; 93010; 99284-25

== ENCOUNTER 2020-08-16 14:22 | Emergency (ER) | payer OTHER ==
[2020-08-16 14:29] VITALS: BMI 27.4
[2020-08-16] MEDS ORDERED: SODIUM CHLORIDE 1,000 ML IV STA (15:01)
[2020-08-16 15:39] LABS: BASO % 0.2 % (0-2.0); EOS % 0.6 % (0-4.5); HEMATOCRIT 39.2 % (35.4-49); HEMOGLOBIN 13.1 GM/dL (11.7-16.9); LYMPH % 14.3 % (8-40); MCH 31.3 pg (25.7-33.7); MCHC 33.4 g/dl (32.0-35.9); MEAN CELL VOLUME 93.9 fl (80-96); MEAN PLT VOLUME 7.3 fl (7.5-11.1); MONO % 8.8 % (3.8-10.2); NEUT % 76.1 % (42.8-82.8); PLATELET COUNT 278 K/MM3 (134-434); RBC 4.18 M/mm3 (4.00-5.60); RDW 13.5 % (11.9-15.9); WHITE BLOOD COUNT 5.5 K/mm3 (4.0-10.0)
[2020-08-16 15:53] LABS: CHLORIDE 105 mmol/L (98-107); POTASSIUM 4.2 mmol/L (3.5-5.1); SODIUM 138 mmol/L (136-145)
[2020-08-16 15:57] LABS: ALBUMIN 2.6 g/dl (3.4-5.0); ANION GAP 8 MMOL/L (8-16); BLOOD UREA NITROGEN 15.3 mg/dL (7-18); CALCIUM 8.2 mg/dL (8.5-10.1); CO2 25 mmol/L (21-32); GLUCOSE,RANDOM 330 mg/dL (74-106); MAGNESIUM 1.8 mg/dL (1.8-2.4)
[2020-08-16 16:00] LABS: CREATININE 1.1 mg/dL (0.55-1.3); SGOT/AST 30 U/L (15-37); SGPT/ALT 22 U/L (13-61)
[2020-08-16 16:02] LABS: BILIRUBIN,TOTAL 0.5 mg/dL (0.2-1); TOT PROT 6.8 g/dl (6.4-8.2)
[2020-08-16 16:03] LABS: ALK PHOS 94 U/L (45-117)
[2020-08-16 16:46] VITALS: BP 129/71; PULSE 100; TEMP 98.9
== END 2020-08-16 16:46 | disposition home or self-care (01) ==
LOC: JER 14:22
DX: U07.1 COVID-19 (principal)
CPT/HCPCS: 36415; 71045-TC-FY; 80053; 83735; 84484; 85025; 93005; 93010; 99285-25; C9803; U0003

== ENCOUNTER 2020-12-09 12:51 | Emergency (ER) | payer OTHER ==
[2020-12-09 12:54] VITALS: BMI 26.1
[2020-12-09 14:00] LABS: BASO % 0.3 % (0-2.0); EOS % 0.8 % (0-4.5); HEMATOCRIT 39.2 % (35.4-49); HEMOGLOBIN 13.4 GM/dL (11.7-16.9); LYMPH % 26.3 % (8-40); MCH 32.4 pg (25.7-33.7); MCHC 34.1 g/dl (32.0-35.9); MEAN CELL VOLUME 94.8 fl (80-96); MEAN PLT VOLUME 7.8 fl (7.5-11.1); MONO % 7.8 % (3.8-10.2); NEUT % 64.8 % (42.8-82.8); PLATELET COUNT 191 K/MM3 (134-434); RBC 4.13 M/mm3 (4.00-5.60); RDW 12.8 % (11.9-15.9); WHITE BLOOD COUNT 5.2 K/mm3 (4.0-10.0)
[2020-12-09 14:16] LABS: ACTIVATED PTT 29.2 SECONDS (25.2-36.5)
[2020-12-09 14:22] LABS: CHLORIDE 108 mmol/L (98-107); SODIUM 139 mmol/L (136-145)
[2020-12-09 14:24] LABS: ALBUMIN 3.4 g/dl (3.4-5.0); ANION GAP 6 MMOL/L (8-16); BLOOD UREA NITROGEN 22.4 mg/dL (7-18); CO2 25 mmol/L (21-32); GLUCOSE,RANDOM 324 mg/dL (74-106)
[2020-12-09 14:27] LABS: CREATININE 1.2 mg/dL (0.55-1.3); SGOT/AST 16 U/L (15-37); SGPT/ALT 23 U/L (13-61)
[2020-12-09 14:29] LABS: BILIRUBIN,TOTAL 0.4 mg/dL (0.2-1); TOT PROT 7.2 g/dl (6.4-8.2)
[2020-12-09 14:30] LABS: ALK PHOS 55 U/L (45-117)
[2020-12-09 14:43] LABS: INR 0.99 (0.83-1.09)
[2020-12-09 17:01] VITALS: BP 122/56; PULSE 88
[2020-12-09 17:07] VITALS: TEMP 98.1
== END 2020-12-09 18:24 | disposition home or self-care (01) ==
LOC: JER 12:51
DX: R07.9 Chest pain, unspecified (principal)
CPT/HCPCS: 36415; 71045-TC-FY; 80053; 82550; 84484; 85025; 85379; 85610; 85730; 86850; 86900; 86901; 93005; 93010; 99285-25; C9803; U0003